=== PATIENT | female | born 1990 | race Caucasian/White ===

== ENCOUNTER 2017-04-25 09:06 | Outpatient (CLI) | payer OTHER ==
[~2017-04-25 09:06] MED LIST: CELEXA; NAPROSYN500 MG PO; PREDNISONE10 M1 PO; PREDNISONE20 MG PO; TESSALON PERLE100 MG PO; TOPICAINE 5113 GM TP; VALTREX1000 MG PO; VENTOLIN HFA18 GM IH; ZITHROMAX500 MG PO; ZOFRAN4 MG PO
[2017-04-25 10:19] VITALS: BP 122/67
[2017-04-25] MEDS ORDERED: METHADONE 22 MG/1 ML PO (10:19)
[2017-04-25] MEDS ORDERED: PRENATAL TABLE1 EAC3 PO (10:19)
== END 2017-04-25 13:18 | disposition home or self-care (01) ==
LOC: LDRP-OP 09:06 → 2WEST 09:07 → LDRP-OP 06-18 13:23
DX: O41.03X0 Oligohydramnios, third trimester, not applicable or unspecified (principal); Z3A.37 37 weeks gestation of pregnancy
CPT/HCPCS: 59025; 76818; G0378

== ENCOUNTER 2017-05-18 13:47 | Inpatient (IN) | payer OTHER ==
[~2017-05-18] VITALS: Ht 162.6 cm; Wt 100.9 kg
[2017-05-18] VITALS (11 sets, daily range): BP systolic 129–162; BP diastolic 72–92
[~2017-05-18 13:47] MED LIST changes: +METHADONE 22 MG/1 ML PO; +PRENATAL TABLE1 EAC3 PO
[2017-05-18] MEDS ORDERED: THERAFLU EXPRE1 EAC1 PO (14:44)
[2017-05-18 16:20] LABS: BASOPHIL (%) 0.2 % (0-1); EOSINOPHIL (%) 0.3 % (0-5); HEMATOCRIT 38.3 % (36.0-46.0); HEMOGLOBIN 13.2 G/DL (11.9-15.5); IMMATURE GRANULOCYTE (%) 0.6 % (0.0-0.7); LYMPHOCYTE COUNT 1.8 K/uL (1.0-2.8); MCH 30.4 PG (29.0-34.0); MCHC 34.5 G/DL (30.0-36.0); MCV 88.2 FL (83-99); MONOCYTE (%) 5.6 % (3-12); MONOCYTE COUNT 0.8 K/uL (0-0.8); NEUTROPHIL (%) 80.3 % (45-76); NEUTROPHIL COUNT 11.3 K/uL (1.8-6.4); PLATELET COUNT 235 K/uL (156-360); RBC DIS.WIDTH-CV 12.7 % (11.8-14.6); RBC DIS.WIDTH-SD 40.8 % (39-53); RED BLOOD COUNT 4.34 M/uL (3.80-5.20); WHITE BLOOD COUNT 14.1 K/uL (4.1-10.2)
[2017-05-18 16:43] LABS: ALBUMIN 3.3 G/DL (3.2-4.8); ALKALINE PHOSPHATASE 128 IU/L (3-129); ALT (GPT) 8 IU/L (3-49); AST (GOT) 14 IU/L (2-34); CHLORIDE 101 MEQ/L (99-109); CREATININE 0.6 MG/DL (0.6-1.3); GFR ESTIMATE (CALCULATED) > 59 mL/min/; GLUCOSE 79 mg/dL (70-99); SODIUM 135 MEQ/L (136-147); TOTAL BILIRUBIN 0.5 MG/DL (0.0-1.0); TOTAL PROTEIN 6.3 G/DL (6.4-8.3); UREA NITROGEN (BUN) 7 mg/dL (9-23)
[2017-05-18 18:07] LABS: UR CREATININE CONCENTRATION 27.3 MG/DL
[2017-05-18 22:24] LABS: AMPHETAMINE NEGATIVE (500 ng/mL); BARBITURATES NEGATIVE (200 ng/mL); BENZODIAZEPINES NEGATIVE (150 ng/mL); BUPRENORPHINE NEGATIVE (10 ng/mL); COCAINE NEGATIVE (150 ng/mL); METHADONE PRESUMPTIVE POSITIVE (200 ng/mL); METHAMPHETAMINE NEGATIVE (500 ng/mL); OPIATES (MORPHINE) NEGATIVE (100 ng/mL); OXYCODONE NEGATIVE (100 ng/mL); PHENCYCLIDINE NEGATIVE (25 ng/mL); PROPOXYPHENE NEGATIVE (300 ng/mL); THC CANNABINOIDS NEGATIVE (50 ng/mL); TRICYCLIC ANTIDEPRESSANTS NEGATIVE (300 ng/mL)
[2017-05-19] VITALS (23 sets, daily range): BP systolic 111–156; BP diastolic 56–84
[2017-05-19 07:04] LABS: BASOPHIL (%) 0.2 % (0-1); EOSINOPHIL (%) 0.7 % (0-5); EOSINOPHIL COUNT 0.1 K/uL (0-0.3); HEMATOCRIT 37.7 % (36.0-46.0); HEMOGLOBIN 12.8 G/DL (11.9-15.5); IMMATURE GRANULOCYTE (%) 0.6 % (0.0-0.7); LYMPHOCYTE (%) 19.4 % (15-42); LYMPHOCYTE COUNT 2.1 K/uL (1.0-2.8); MCH 30.3 PG (29.0-34.0); MCV 89.3 FL (83-99); MONOCYTE (%) 10.6 % (3-12); MONOCYTE COUNT 1.2 K/uL (0-0.8); NEUTROPHIL (%) 68.5 % (45-76); NEUTROPHIL COUNT 7.4 K/uL (1.8-6.4); NRBC (%) 0.2 /100 WBC (0-0); PLATELET COUNT 231 K/uL (156-360); RBC DIS.WIDTH-CV 12.8 % (11.8-14.6); RBC DIS.WIDTH-SD 41.5 % (39-53); RED BLOOD COUNT 4.22 M/uL (3.80-5.20); WHITE BLOOD COUNT 10.9 K/uL (4.1-10.2)
[2017-05-19 07:27] LABS: ALBUMIN 3.1 G/DL (3.2-4.8); ALKALINE PHOSPHATASE 132 IU/L (3-129); ALT (GPT) 8 IU/L (3-49); AST (GOT) 13 IU/L (2-34); CHLORIDE 103 MEQ/L (99-109); CREATININE 0.6 MG/DL (0.6-1.3); GFR ESTIMATE (CALCULATED) > 59 mL/min/; GLUCOSE 81 mg/dL (70-99); POTASSIUM 4.1 MEQ/L (3.7-5.4); SODIUM 138 MEQ/L (136-147); TOTAL BILIRUBIN 0.5 MG/DL (0.0-1.0); TOTAL PROTEIN 5.7 G/DL (6.4-8.3); UREA NITROGEN (BUN) 7 mg/dL (9-23)
[2017-05-20] VITALS (36 sets, daily range): BP systolic 118–175; BP diastolic 57–96
[2017-05-20] MEDS ORDERED: MOTRIN800 MG PO (18:53)
[2017-05-21 03:20] VITALS: BP 143/82
[2017-05-21 07:29] VITALS: BP 138/86
[2017-05-21 10:34] VITALS: BP 136/89
[2017-05-21 16:30] VITALS: BP 144/76
[2017-05-21 19:56] VITALS: BP 155/76
[2017-05-21 22:45] VITALS: BP 144/82
[2017-05-22 03:48] VITALS: BP 159/92
[2017-05-22 07:23] VITALS: BP 169/71
[2017-05-22 09:10] VITALS: BP 172/92
[2017-05-22 13:18] VITALS: BP 128/64
[2017-05-22 14:14] VITALS: BP 134/69
[2017-05-22] MEDS ORDERED: NORMODYNE,TRAN200 MG PO (14:19)
[2017-05-22] MEDS ORDERED: BREAST PUMP MC (14:28)
== END 2017-05-22 18:05 | disposition home or self-care (01) | DRG 775 ==
LOC: LDRP-OP 13:47 → 2WEST 13:48 → LDRP-OP 06-18 02:48
PROVIDERS: Obstetrics & Gynecology Obstetrics
DX: O70.0 First degree perineal laceration during delivery (principal); O63.0 Prolonged first stage (of labor); O41.03X0 Oligohydramnios, third trimester, not applicable or unspecified; O14.94 Unspecified pre-eclampsia, complicating childbirth; O42.92 Full-term premature rupture of membranes, unspecified as to length of time between rupture and onset of labor; O99.324 Drug use complicating childbirth; F11.20 Opioid dependence, uncomplicated; O99.344 Other mental disorders complicating childbirth; F41.9 Anxiety disorder, unspecified; O99.52 Diseases of the respiratory system complicating childbirth; J45.909 Unspecified asthma, uncomplicated; O99.214 Obesity complicating childbirth; E66.9 Obesity, unspecified; Z68.34 Body mass index [BMI] 34.0-34.9, adult; Z3A.39 39 weeks gestation of pregnancy; Z37.0 Single live birth
CPT/HCPCS: 80053; 82570; 84156; 85025; C1755; C1776; G0378; J0595; J2405; J3010; J7120